=== PATIENT | female | born 1985 | race Caucasian/White ===

== ENCOUNTER 2016-09-03 20:51 | Outpatient (CLI) | payer MEDICAID, OTHER ==
[~2016-09-03] VITALS: Ht 152.4 cm; Wt 61.9 kg
[~2016-09-03 20:51] MED LIST: ACET500C5 PO; NITR-58 PO
[2016-09-03 21:09] VITALS: Ht 152.4 cm; Wt 61.9 kg
[2016-09-03] MEDS ORDERED: PREN1TAB79 PO (21:09)
[2016-09-03] MEDS ORDERED: CEPH-443 PO (21:09)
[2016-09-03 21:10] VITALS: BP 113/59; PULSE 74; RESP 18
--- NOTE | 2016-09-03 23:18 | RADRPT ---
PROCEDURE: ULTRASOUND OBSTETRICAL LIMITED CLINICAL INDICATION: 31-year-old female in labor with ruptured membranes for amni otic fluid index evaluation. TECHNIQUE: Multiple sonographic images of the pelvis were obtained. The images were reviewed on a PACS workstation. COMPARISON: No prior studies are available for comparison. FINDINGS: The cervix is closed with a length of 4.4 cm measured endovaginally. There is a single viable intrau terine gestation. Cardiac activity is present with 132 beats per minute. There is a vertex presenta tion. The placenta is fundal. There is no evidence for an abruption or placenta previa. There is a normal amount of amniotic fluid with an ANTON = 13.6 cm. IMPRESSION: 1. Single viable intrauterine gestation with vertex presentation. 2. The cervix appears closed with a length of 4.4 cm. 3. The amniotic fluid index equals 13.6 cm. .Manny Garner MD, Date Time Electronically viewed and signed by .Manny Garner MD, MD on 09/03/2016 23:18 .M/
--- NOTE | 2016-09-04 02:26 | QN ---
Documentation Comment Laborist Dr Govea's pt 31 y.o. A1 with an IUP at 28 weeks 2 days c/o SROM at 1800. No VB. Denies UC's. PMHx: anemia. PSHx: none. NKDA. BP 113/59 T= 98.4 NST: baseline 130 bpm with accels to 160 bpm. No decels. Occasional UC's. No pooling. Nitrazine negative. US: ANTON 13.6 cm. VTX. Cervix 4.4 cm long. A; IUP at 28 weeks 2 days. Menbranes intact. P: D/C home. WOOD SONI MD Sep 04, 2016 02:26
== END 2016-09-04 00:39 | disposition home or self-care (01) ==
LOC: OBT 20:51 → L-D 20:52 → OBT 09-04 00:39
PROVIDERS: ATTEND Obstetrics & Gynecology
DX: O26.893 Other specified pregnancy related conditions, third trimester (principal); Z3A.28 28 weeks gestation of pregnancy
CPT/HCPCS: 76815; 76817; Z7500; G0463

== ENCOUNTER 2016-09-26 15:13 | Outpatient (CLI) | payer OTHER ==
[~2016-09-26] VITALS: Ht 152.4 cm; Wt 64.7 kg
[~2016-09-26 15:13] MED LIST changes: -ACET500C5 PO; +CEPH-443 PO; -NITR-58 PO; +PREN1TAB79 PO
[2016-09-26 16:23] LABS: ADD UMIC NO; URINE BILIRUBIN (Dip) NEGATIVE (NEGATIVE); URINE BLOOD (Dip) NEGATIVE (NEGATIVE); URINE COLOR LT. YELLOW (YELLOW); URINE GLUCOSE (Dip) NEGATIVE (NEGATIVE); URINE KETONES (Dip) NEGATIVE (NEGATIVE); URINE LEUKOCYTE ESTERASE (Dip) NEGATIVE (NEGATIVE); URINE NITRITE (Dip) NEGATIVE (NEGATIVE); URINE TOTAL PROTEIN (Dip) NEGATIVE (NEGATIVE); URINE UROBILINOGEN (Dip) 0.2 E.U./dL (0.1-1.0)
[2016-09-26 16:28] LABS: BASOPHIL # 0.1 10^3/ul (0.0-0.1); BASOPHILS % 0.6 % (0.0-2.0); EOSINOPHILS # 0.1 10^3/ul (0.0-0.5); EOSINOPHILS % 0.9 % (0.0-7.0); HEMATOCRIT 29.9 % (37.0-47.0); HEMOGLOBIN 9.3 g/dl (12.0-16.0); LYMPHOCYTES # 1.3 10^3/ul (0.8-2.9); LYMPHOCYTES % 12.2 % (15.0-51.0); MEAN CORPUSCULAR HGB CONC 31.2 g/dl (32.0-37.0); MEAN CORPUSCULAR VOLUME 70.6 fl (82.0-101.0); MEAN PLATELET VOLUME 7.6 fl (7.4-10.4); MONOCYTE # 0.7 10^3/ul (0.3-0.9); MONOCYTES % 6.8 % (0.0-11.0); NEUTROPHIL # 8.8 10^3/ul (1.6-7.5); NEUTROPHILS % 79.5 % (39.0-77.0); PLATELET COUNT 280 10^3/UL (140-440); RED BLOOD COUNT 4.24 10^6/ul (4.20-5.40)
[2016-09-26 16:29] LABS: CONDITION 1; LH ANALYZER COMMENTS 1
[2016-09-26] MEDS ORDERED: TERBUTALINE 1 MG/ML INJ SC ONE ×2 (16:30→17:00)
[2016-09-26] MEDS ORDERED: LACTATED RINGER'S 1,000 ML IV ONE (16:30)
[2016-09-26] MEDS ORDERED: LACTATED RINGER'S 1,000 ML IV SCH (16:30)
--- NOTE | 2016-09-26 16:34 | RADRPT ---
PROCEDURE: Limited OB ultrasound. CLINICAL INDICATION: labor TECHNIQUE: Sonographic evaluation to assess cervical length was performed. Transabdominal imaging of the gravid uterus was performed. COMPARISON: 09/03/2016 FINDINGS: Single live intrauterine with cardiac activity is identified. The cervical length e quals 4.3 cm. Cephalic presentation. Heart rate 146 beats per minute. Posterior grade 1 placenta. IMPRESSION: 1. Cervical length equals 4.3 cm. RPTAT: GG .Ramiro Martínez MD, Date Time Electronically viewed and signed by .Ramiro Martínez MD, on 09/26/2016 16:34 .L/
[2016-09-26] MEDS ORDERED: BETAMET NA PHOS/AC(6 MG/ML) 5ML INJ IM SCH (18:30)
[2016-09-26] MEDS ORDERED: NIFEdipine 10 MG CAP PO ONE (18:30)
--- NOTE | 2016-09-26 18:34 | QN ---
Documentation Comment 31 y/o female Ab1 at 32 weeks C/O onset and worsening uterine contractions started yesterday Parental course otherwise uncomplicated. Had 2 births PMH PSH + or previous C/S VS. And general P/E is NL . Patient NOT in labor distress On EFM U/C seen q 3-4 min : After IV hydration and 2 X SQ terbutaline injections uterine contractions subsided Cervix is closed and cervical length is 4.2 cm Will obtain OB U/S Place patient on Nifedipine and magnesium oxide tabs Steroids ordered and will repeat dose next day F/U in [facility] on Monday TOSHIA BRENNAN MD Sep 26, 2016 18:34
--- NOTE | 2016-09-26 18:46 | RADRPT ---
PROCEDURE: US OB. CLINICAL INDICATION: labor and 31 weeks gestational age. TECHNIQUE: Multiple sonographic images of the uterus were obtained. The images were revi ewed on a PACS workstation. COMPARISON: No prior studies are available for comparison. FINDINGS: There is a single live intrauterine gestation. heart rate is 143 beats per minute. Measurements were made in order to determine age. The results are as follows: BPD = 7.57 cm. HC = 28.62 cm. AC = 27.54 cm. FL = 6.09 cm. Estimated weight is 1778 +/- 267 grams. LMP growth percentile is 40 %. Menstrual age by ultrasound dates is 31 weeks 2 days. The estimated date of delivery is 11/26/2016. Position is cephalic and placenta is fundal posterior grade 1. There is no evidence for an abruption or placenta previa. IMPRESSION: 1. Single live intrauterine gestation of 31 weeks 2 days menstrual age by ultrasound dates. 2. The estimated date of delivery is 11/26/2016. RPTAT: QQ .Bipin Chatman MD, MD Date Time Electronically viewed and signed by .Bipin Chatman MD, on 09/26/2016 18:45 .R/
--- NOTE | 2016-09-26 19:17 | RADRPT ---
PROCEDURE: US biophysical profile. CLINICAL INDICATION: Decreased motion. TECHNIQUE: Multiple sonographic images of the uterus were obtained. The images were revi ewed on a PACS workstation. COMPARISON: No prior studies are available for comparison. FINDINGS: There is a single live intrauterine gestation. heart rate is 134 beats per minute. The position is cephalic. The placenta is fundal posterior grade 1 with no abruption or previa. The ANTON is 15.6 cm. (Normal = 5-20 cm.) Breathing Movement: 2 Gross Body Movement: 2 Tone: 2 Qualitative Amniotic Fluid Volume: 2 TOTAL: 8 IMPRESSION: 1. The biophysical score is 8/8. RPTAT: QQ .Bipin Chatman MD, MD Date Time Electronically viewed and signed by .Bipin Chatman MD, on 09/26/2016 19:17 .R/
--- NOTE | 2016-09-27 02:46 | TRIAGE ---
OB Triage Datetime Report Generated by CPN: 09/27/2016 02:45 Datetime: 09/26/2016 19:51 Stage of : OB Triage Assessment Type: Triage Datetime: 09/26/2016 19:26 Stage of : OB Triage Assessment Type: Triage Maternal Assessment Level of Consciousness: Fully Conscious DTR's/Clonus: DTRs 2+; No Clonus Headache: Denies Blurred Vision: No Respiratory Effort: Unlabored; Regular Rhythm; Equal Expansion Breath Sounds, Left: Clear and Equal Breath Sounds, Right: Clear and Equal Nausea/Vomiting: Denies RUQ Epigastric Pain: Denies Lower Extremities Edema: None Degree: None Upper Extremities Edema: None Degree: None Facial Edema: None Fall Risk Assessment History of Falling: (0) No Secondary Diagnosis: (0) No Ambulatory Aid: (0) Bedrest/Nurse Assist IV Therapy: (0) No Gait: (0) Normal/Bedrest/Immobile Mental Status: (0) Oriented to Own Ability Fall Score: 0 Fall Risk Score Definition: No Risk: No action required Labor Evaluation Frequency: None noted Monitor Mode: External Resting Tone [place]: Relaxed Heart Rate FHR Baseline Rate: 130 Monitor Mode: External US Variability: Moderate 6-25 bpm Accelerations: 15X15 Decelerations: None Category: Category I Pain Assessment Pain Scale: 0 Pain Presence: None/Denies Pain Type: N/A Pain Assessment Comments: Pt denies any further pain or cramping Datetime: 09/26/2016 18:14 Labor Evaluation Frequency: OCCAS Monitor Mode: External Duration (sec)2399: 60-70 Quality: Mild Pattern: Normal: <= 5 Contractions in 10 Minutes Resting Tone [place]: Relaxed Heart Rate FHR Baseline Rate: 140 Monitor Mode: External US FHR Baseline Changes: No Baseline Change Variability: Moderate 6-25 bpm Accelerations: 15X15 Decelerations: None Category: Category I Datetime: 09/26/2016 17:20 Labor Evaluation Frequency: IRREGULAR Monitor Mode: External Duration (sec)2399: 60-100 Quality: Moderate Pattern: Normal: <= 5 Contractions in 10 Minutes Resting Tone [place]: Relaxed Heart Rate FHR Baseline Rate: 140 Monitor Mode: External US FHR Baseline Changes: No Baseline Change Variability: Moderate 6-25 bpm Accelerations: 15X15 Decelerations: None Category: Category I Datetime: 09/26/2016 16:44 Vaginal Exam Dilatation (cms): 0.0 Effacement (%): 0 Station: -3 Exam By: A JENNIFERAN Datetime: 09/26/2016 16:15 Labor Evaluation Frequency: 2-4 Monitor Mode: External Duration (sec)2399: 60-130 Quality: Moderate Pattern: Normal: <= 5 Contractions in 10 Minutes Resting Tone [place]: Relaxed Heart Rate FHR Baseline Rate: 130 Monitor Mode: External US FHR Baseline Changes: No Baseline Change Variability: Moderate 6-25 bpm Accelerations: 15X15 Decelerations: None Category: Category I Datetime: 09/26/2016 15:33 Stage of : OB Triage Assessment Type: Triage Maternal Assessment Level of Consciousness: Fully Conscious DTR's/Clonus: DTRs 2+; No Clonus Headache: Denies Blurred Vision: No Respiratory Effort: Unlabored; Regular Rhythm; Equal Expansion Breath Sounds, Left: Clear and Equal Breath Sounds, Right: Clear and Equal Nausea/Vomiting: Denies RUQ Epigastric Pain: Denies Lower Extremities Edema: None Degree: None Upper Extremities Edema: None Degree: None Facial Edema: None Temperature Route: Axillary Fall Risk Assessment History of Falling: (0) No Secondary Diagnosis: (0) No Ambulatory Aid: (0) Bedrest/Nurse Assist IV Therapy: (0) No Gait: (0) Normal/Bedrest/Immobile Mental Status: (0) Oriented to Own Ability Fall Score: 0 Fall Risk Score Definition: No Risk: No action required Labor Evaluation Frequency: 0 Monitor Mode: External Resting Tone [place]: Relaxed Heart Rate FHR Baseline Rate: 130 Monitor Mode: External US Variability: Moderate 6-25 bpm Decelerations: None Category: Category I Pain Assessment Pain Scale: 5 Pain Presence: Intermittent Pain Type: Cramping Pain Location: Abdomen Pain Goal: 3 Pain Relief Measures: Comfort Measures Datetime: 09/26/2016 15:32 Time of Arrival: 09/26/2016 15:13 EGA: 31.3 Arrived By: Ambulatory Arrived From: Home Chief Complaint: C/O UC'S SINCE LAST NIGHT, DENIES BLEEDING OR LEAKING OF FLUID Movement: Decreased Contractions: Irregular Time Contractions Began: 09/26/2016 00:00 Rupture of Membranes: Denies Vaginal Bleeding: None Vaginal Discharge: Denies Recent Sexual Intercouse: Yes Abdominal Trauma: Not Applicable Patient Complaints: Cramping Time Provider Notified: 09/26/2016 16:01 Provider Notified: DR CURRAN Initial Plan: MONITOR, Datetime: 09/04/2016 00:30 Stage of : OB Triage Labor Evaluation Frequency: None noted or palpated Monitor Mode: External Resting Tone [place]: Relaxed Heart Rate FHR Baseline Rate: 125 Monitor Mode: External US FHR Baseline Changes: No Baseline Change Variability: Moderate 6-25 bpm Accelerations: 15X15 Decelerations: None Category: Category I Datetime: 09/04/2016 00:27 Stage of : OB Triage Pain Assessment Pain Scale: 0 Pain Presence: None/Denies Datetime: 09/04/2016 00:00 Labor Evaluation Frequency: NONE Monitor Mode: External Pattern: Normal: <= 5 Contractions in 10 Minutes Resting Tone [place]: Relaxed Heart Rate FHR Baseline Rate: 125 Monitor Mode: External US Variability: Moderate 6-25 bpm Accelerations: 15X15 Decelerations: None Category: Category I Datetime: 09/03/2016 23:00 Labor Evaluation Frequency: X1 Monitor Mode: External Duration (sec)2399: 40 Quality: Mild Pattern: Normal: <= 5 Contractions in 10 Minutes Resting Tone [place]: Relaxed Heart Rate FHR Baseline Rate: 125 Monitor Mode: External US Variability: Moderate 6-25 bpm Accelerations: 15X15 Decelerations: None Category: Category I Datetime: 09/03/2016 22:30 Stage of : OB Triage Pain Assessment Pain Scale: 0 Pain Presence: None/Denies Pain Goal: 0 Datetime: 09/03/2016 22:00 Labor Evaluation Frequency: X2 Monitor Mode: External Duration (sec)2399: 50 Quality: Mild Pattern: Normal: <= 5 Contractions in 10 Minutes Resting Tone [place]: Relaxed Heart Rate FHR Baseline Rate: 130 Monitor Mode: External US Variability: Moderate 6-25 bpm Accelerations: 15X15 Decelerations: None Category: Category I Datetime: 09/03/2016 21:15 Resting Tone [place]: Relaxed Datetime: 09/03/2016 21:06 Pool: Negative Nitrazine: Negative Datetime: 09/03/2016 21:03 EGA: 28.1 Additional Patient Complaints: Datetime: 09/03/2016 21:00 Monitor Mode: External Resting Tone [place]: Relaxed Contraction Comments: Nebo applied Heart Rate FHR Baseline Rate: 135 Monitor Mode: External US Comments: EFM applied Datetime: 09/03/2016 20:56 Stage of : OB Triage Assessment Type: Triage Maternal Assessment Level of Consciousness: Fully Conscious DTR's/Clonus: DTRs 2+; No Clonus Headache: Frontal Blurred Vision: No Respiratory Effort: Unlabored; Regular Rhythm; Equal Expansion Breath Sounds, Left: Clear and Equal Breath Sounds, Right: Clear and Equal Nausea/Vomiting: Hx of Nausea/Vomiting (Annotations: Hx nausea, denies @ this time) RUQ Epigastric Pain: Denies Lower Extremities Edema: None Degree: None Upper Extremities Edema: None Degree: None Facial Edema: None Temperature Route: Oral Fall Risk Assessment History of Falling: (0) No Secondary Diagnosis: (0) No Ambulatory Aid: (0) Bedrest/Nurse Assist IV Therapy: (0) No Gait: (0) Normal/Bedrest/Immobile Mental Status: (0) Oriented to Own Ability Fall Score: 0 Fall Risk Score Definition: No Risk: No action required Pain Assessment Pain Scale: 7 Pain Presence: Intermittent Pain Type: Cramping Pain Location: Abdomen; Back Pain Relief Measures: Comfort Measures Datetime: 09/03/2016 20:55 Time of Arrival: 09/03/2016 20:39 Arrived By: Wheelchair Arrived From: Home Chief Complaint: Leaking clear fluid since 1800 with uc's [id number]. Pt also reports frontal RUCKER pain. Movement: Present Contractions: Irregular Time Contractions Began: 09/03/2016 18:00 Contractions: [id number] Rupture of Membranes: Unsure Vaginal Bleeding: None Vaginal Discharge: Present Recent Sexual Intercouse: Yes Abdominal Trauma: Not Applicable Patient Complaints: Contractions; Cramping; Back Pain; Headache Time Provider Notified: 09/03/2016 21:38 Provider Notified: ZACHARIAH Initial Plan: KUSH GREER, [place]
[2016-09-27] MEDS ORDERED: PRO20 PO (18:31)
== END 2016-09-26 20:00 | disposition home or self-care (01) ==
LOC: OBT 15:13 → L-D 15:14 → OBT 20:00
PROVIDERS: ATTEND Obstetrics & Gynecology
DX: O62.9 Abnormality of forces of labor, unspecified (principal); Z3A.32 32 weeks gestation of pregnancy
CPT/HCPCS: 36415; 76815; 76817; 76818; 81003; 85025; 96360; 96361; 96372; J0702; J3105; J7120; Z7500; Z7610; G0463

== ENCOUNTER 2016-09-27 18:21 | Outpatient (CLI) | payer OTHER ==
[~2016-09-27] VITALS: Ht 152.4 cm; Wt 64.9 kg
[~2016-09-27 18:21] MED LIST changes: -CEPH-443 PO
[2016-09-27 18:31] VITALS: Ht 152.4 cm; Wt 64.9 kg
[2016-09-27] MEDS ORDERED: PRO20 PO (18:31)
[2016-09-27 18:32] VITALS: BP 106/59; PULSE 96; RESP 18
[2016-09-27] MEDS ORDERED: BETAMET NA PHOS/AC(6 MG/ML) 5ML INJ IM ONE (19:00)
--- NOTE | 2016-09-27 20:08 | TRIAGE ---
OB Triage Datetime Report Generated by CPN: 09/27/2016 20:08 Datetime: 09/27/2016 19:29 Stage of : OB Triage Frequency: 0 Monitor Mode: External Pattern: Normal: <= 5 Contractions in 10 Minutes Resting Tone [place]: Relaxed FHR Baseline Rate: 135 Monitor Mode: External US FHR Baseline Changes: No Baseline Change Variability: Moderate 6-25 bpm Accelerations: 15X15 Decelerations: None Category: Category I Comments: removed Pain Scale: 0 Pain Presence: None/Denies Pain Type: N/A Datetime: 09/27/2016 18:38 Frequency: 0 Pattern: Normal: <= 5 Contractions in 10 Minutes Resting Tone [place]: Relaxed Contraction Comments: NONE NOTED FHR Baseline Rate: 140 Monitor Mode: External US Variability: Moderate 6-25 bpm Accelerations: 15X15 Decelerations: None Category: Category I Datetime: 09/27/2016 18:37 Assessment Type: Admission Assessment Level of Consciousness: Fully Conscious DTR's/Clonus: DTRs 2+; No Clonus Headache: Denies Blurred Vision: No Respiratory Effort: Unlabored; Regular Rhythm; Equal Expansion Breath Sounds, Left: Clear and Equal Breath Sounds, Right: Clear and Equal Nausea/Vomiting: Denies RUQ Epigastric Pain: Denies Lower Extremities Edema: None Degree: None Upper Extremities Edema: None Degree: None Facial Edema: None History of Falling: (0) No Secondary Diagnosis: (0) No Ambulatory Aid: (0) Bedrest/Nurse Assist IV Therapy: (0) No Gait: (0) Normal/Bedrest/Immobile Mental Status: (0) Oriented to Own Ability Fall Score: 0 Fall Risk Score Definition: No Risk: No action required Datetime: 09/27/2016 18:36 Time of Arrival: 09/27/2016 18:15 EGA: 31.4 Arrived By: Ambulatory Arrived From: Home Movement: Present Contractions: Denies/Absent Rupture of Membranes: Denies Vaginal Bleeding: None Vaginal Discharge: Denies Recent Sexual Intercouse: Denies Abdominal Trauma: Not Applicable Patient Complaints: Other Time Provider Notified: 09/27/2016 19:30 Provider Notified: Dr Govea Initial Plan: AMINAHT
--- NOTE | 2016-09-27 20:34 | HP ---
Date/Time of Note Date/Time of Note DATE: 09/27/16 TIME: 20:30 OB - History Hx of Present Free Text/Dictation L&D Triage 31yo at 31+4 w/recent UCs s/p 1st BMZ injection yesterday, here today for 2nd injection in the setting of prior PTD at 35wks GA. Pt doing well. Denies UCs, VB or LOF. Reports good FM. Estimated Due Date: Nov 25, 2016 : 4 Para: 2 Care: Good Care Past Family/Social History * Past Medical, Surgical, Family and Obstetric Histories reviewed from chart. OB Admission Exam Vital Signs Vital Signs Vital Signs Date Time Temp Pulse Resp B/P Pulse Ox O2 Delivery O2 Flow Rate FiO2 09/27/16 18:32 98.3 96 18 106/59 Room Air Physical Exam Heart Rate: 130's Decelerations: No Decelerations Varibility: Moderate Contractions on Admission: None OB Assessment/Plan Other Assessment: Hx of Contractions without signs/sxs of Labor Other plan: Per primary OB, Dr. Govea, pt received 2nd dose of corticosteroids FWB reassuring w/reactive NST Pt to f/up tomorrow in clinic as scheduled PTL, PPROM and FKC precautions reviewed Questions answered to patient's satisfaction RUTH AVERY MD Sep 27, 2016 20:33
== END 2016-09-27 19:53 | disposition home or self-care (01) ==
LOC: OBT 18:21 → L-D 18:22 → OBT 19:53
PROVIDERS: ATTEND Obstetrics & Gynecology
DX: O60.03 Preterm labor without delivery, third trimester (principal); Z3A.35 35 weeks gestation of pregnancy
CPT/HCPCS: G0463

== ENCOUNTER 2016-10-12 17:13 | Outpatient (CLI) | payer OTHER ==
[~2016-10-12] VITALS: Ht 152.4 cm; Wt 64.7 kg
[~2016-10-12 17:13] MED LIST changes: +PRO20 PO
[2016-10-12 18:19] VITALS: Ht 152.4 cm; Wt 64.7 kg
[2016-10-12 18:20] VITALS: BP_SYST 111
[2016-10-12 18:22] VITALS: BP 111/69; PULSE 104; RESP 18
[2016-10-12] MEDS ORDERED: TERBUTALINE 1 ML ONE (18:52)
[2016-10-12] MEDS ORDERED: TERBUTALINE 1 MG/ML INJ SC ONE (19:00)
[2016-10-12] MEDS ORDERED: MAGNESIUM SULFATE 20 GM/500 ML 500 ML IV SCH (19:29)
[2016-10-12] MEDS ORDERED: LACTATED RINGER'S 1,000 ML IV SCH (19:29)
[2016-10-12] MEDS ORDERED: ACETAMINOPHEN 325 MG TAB PO PRN (19:30)
[2016-10-12] MEDS ORDERED: BETAMET NA PHOS/AC(6 MG/ML) 5ML INJ IM SCH (19:30)
[2016-10-12] MEDS ORDERED: MAGNESIUM SULFATE 4 GM/100 ML 100 ML IV ONE (19:30)
[2016-10-12 19:46] LABS: ADD UMIC NO; URINE BILIRUBIN (Dip) NEGATIVE (NEGATIVE); URINE BLOOD (Dip) NEGATIVE (NEGATIVE); URINE COLOR LT. YELLOW (YELLOW); URINE GLUCOSE (Dip) NEGATIVE (NEGATIVE); URINE KETONES (Dip) TRACE (NEGATIVE); URINE LEUKOCYTE ESTERASE (Dip) NEGATIVE (NEGATIVE); URINE NITRITE (Dip) NEGATIVE (NEGATIVE); URINE TOTAL PROTEIN (Dip) NEGATIVE (NEGATIVE); URINE UROBILINOGEN (Dip) 0.2 E.U./dL (0.1-1.0)
[2016-10-12 19:59] LABS: ADD SCAN DIFF NO
[2016-10-12] MEDS ORDERED: AMPICILLIN 2 GM/NS (PMX) 100 ML IV ONE (20:00)
[2016-10-12 20:12] LABS: INR 1.05; PARTIAL THROMBOPLASTIN TIME 25.9 Sec (25.0-35.0); PROTIME 13.7 Sec (12.2-14.2); PT RATIO 1.1
[2016-10-12 20:14] LABS: BASOPHILS % 0.3 % (0.0-2.0); EOSINOPHILS # 0.1 10^3/ul (0.0-0.5); EOSINOPHILS % 0.7 % (0.0-7.0); HEMATOCRIT 31.6 % (37.0-47.0); HEMOGLOBIN 9.2 g/dl (12.0-16.0); LYMPHOCYTES # 1.8 10^3/ul (0.8-2.9); LYMPHOCYTES % 16.3 % (15.0-51.0); MEAN CORPUSCULAR HEMOGLOBIN 21.4 pg (29.0-33.0); MEAN CORPUSCULAR HGB CONC 29.1 g/dl (32.0-37.0); MEAN CORPUSCULAR VOLUME 73.5 fl (82.0-101.0); MEAN PLATELET VOLUME 9.3 fl (7.4-10.4); MONOCYTE # 0.8 10^3/ul (0.3-0.9); MONOCYTES % 7.7 % (0.0-11.0); NEUTROPHIL # 8.1 10^3/ul (1.6-7.5); NEUTROPHILS % 73.5 % (39.0-77.0); PLATELET COUNT 239 10^3/UL (140-415); RED CELL DISTRIBUTION WIDTH 18.8 % (11.5-14.5)
--- NOTE | 2016-10-12 22:21 | QN ---
Documentation Comment 31-year-old with IUP at 33 weeks and 5 days with history of section 2 here today with complaint of contractions. She was admitted about 2 weeks ago due to contractions and was a started on Procardia. Status post 2 doses of steroid and was discharged home with 10 mg Procardia 4 times daily Patient currently taking her Procardia as a scheduled. She denies any urinary symptoms. She denies any leaking of fluid, vaginal bleeding or decreased movement Physical examination: GA: A&O, in moderate distress Abdomen: Soft, nontender. Fundal height consistent with gestational age contractions every 2-3 minutes with interval irritability noted on the monitor NST: Category 1 Vaginal examination: Cervix posterior closed and long Assessment: 1-history of section 2 IUP at 33 weeks and 5 days2. 3 history of contractions 2 weeks ago status post betamethasone-and currently on Procardia oral. 4-regular uncomfortable contractions with irritability. Due to the discomfort and contractions, a single dose of terbutaline was given UA negative Plan: Admit to antepartum Start magnesium for tocolysis Consider rescue steroid Antibiotics for GBS prophylaxis Plan discussed with the patient. I was called later by RN, that the patient refused magnesium. She felt no pain after she received IV hydration and a dose of terbutaline. Declined to be admitted in the hospital and declined to receive tocolysis, although explained to her about the risk of uterine rupture with contraction in the context of prior to section. She is signed AMA and desire to leave the hospital AGAINST MEDICAL ADVICE. She verbalized understanding all above risks. COMFORT HWANG MD Oct 12, 2016 22:21
[2016-10-13] MEDS ORDERED: AMPICILLIN 1 GM/NS (PMX) 50 ML IV SCH
[2016-10-13] MEDS ORDERED: MULTIVIT/MIN/FOLATE/IRON/PREN TAB PO SCH (09:00)
== END 2016-10-12 21:31 | disposition left against medical advice (07) ==
LOC: L-D 17:13 → OBT 17:13
PROVIDERS: ATTEND Obstetrics & Gynecology Obstetrics
DX: O60.03 Preterm labor without delivery, third trimester (principal); Z3A.33 33 weeks gestation of pregnancy; Z53.29 Procedure and treatment not carried out because of patient's decision for other reasons
CPT/HCPCS: 36415; 81003; 85025; 85610; 85730; 86592; 86850; 86900; 86901; 96360; 96361; J3105; J7120; Z7500; G0463

== ENCOUNTER 2016-11-12 17:10 | Inpatient (IN) | payer OTHER ==
[~2016-11-12] VITALS: Ht 152.4 cm; Wt 66.6 kg
[2016-11-12 17:16] VITALS: Ht 152.4 cm; Wt 66.6 kg
[2016-11-12 17:25] VITALS: BP 108/61; PULSE 83; RESP 20
[2016-11-12] MEDS: LACTATED RINGER'S 1,000 ML IV SCH ×2 (18:08→19:37)
--- NOTE | 2016-11-12 19:32 | TRIAGE ---
OB Triage Datetime Report Generated by CPN: 11/12/2016 19:32 Datetime: 11/12/2016 18:00 Labor Evaluation Frequency: 4-5 Monitor Mode: External Duration (sec)2399: 60 Quality: Moderate Pattern: Normal: <= 5 Contractions in 10 Minutes Resting Tone [place]: Relaxed Heart Rate FHR Baseline Rate: 120 Monitor Mode: External US FHR Baseline Changes: No Baseline Change Variability: Moderate 6-25 bpm Accelerations: 15X15 Decelerations: None Category: Category I Pain Assessment Pain Scale: 7 Pain Presence: Intermittent Pain Type: Contraction Pain Location: Abdomen Pain Goal: 4 Datetime: 11/12/2016 17:29 Maternal Assessment Level of Consciousness: Fully Conscious DTR's/Clonus: DTRs 2+; No Clonus Headache: Denies Blurred Vision: No Respiratory Effort: Unlabored; Regular Rhythm; Equal Expansion Breath Sounds, Left: Clear and Equal Breath Sounds, Right: Clear and Equal Nausea/Vomiting: Denies RUQ Epigastric Pain: Denies Facial Edema: None Temperature Route: Axillary Fall Risk Assessment History of Falling: (0) No Secondary Diagnosis: (0) No Ambulatory Aid: (0) Bedrest/Nurse Assist IV Therapy: (0) No Gait: (0) Normal/Bedrest/Immobile Mental Status: (0) Oriented to Own Ability Fall Score: 0 Fall Risk Score Definition: No Risk: No action required Datetime: 11/12/2016 17:21 Maternal Assessment Level of Consciousness: Fully Conscious DTR's/Clonus: DTRs 2+ Headache: Denies Blurred Vision: No Nausea/Vomiting: Denies RUQ Epigastric Pain: Denies Facial Edema: None Labor Evaluation Frequency: Q 5 AT HOME Monitor Mode: External Quality: Moderate Pattern: Normal: <= 5 Contractions in 10 Minutes Resting Tone [place]: Relaxed Heart Rate FHR Baseline Rate: 115 Monitor Mode: External US FHR Baseline Changes: No Baseline Change Variability: Moderate 6-25 bpm Accelerations: 15X15 Decelerations: None Category: Category I Pain Assessment Pain Scale: 8 Pain Presence: Intermittent Pain Type: Contraction Pain Location: Abdomen Pain Goal: 4 Membrane Status: Intact Datetime: 10/12/2016 21:31 Time of Arrival: 11/12/2016 17:10 EGA: 38.1 Arrived By: Wheelchair Arrived From: Home Chief Complaint: UCS SINCE 1400 Movement: Present Contractions: Regular Time Contractions Began: 11/12/2016 14:00 Contractions: Q 5 AT HOME Rupture of Membranes: Denies Vaginal Bleeding: None Vaginal Discharge: Denies Recent Sexual Intercouse: Denies Abdominal Trauma: Not Applicable Patient Complaints: Contractions Time Provider Notified: 11/12/2016 17:50 Provider Notified: BINA Initial Plan: EFM,CALL DR BINA Datetime: 10/12/2016 21:25 Stage of : OB Triage Datetime: 10/12/2016 21:03 Stage of : OB Triage Labor Evaluation Frequency: IRREGULAR Monitor Mode: External Duration (sec)2399: 40-80 Quality: Mild Resting Tone [place]: Relaxed Heart Rate FHR Baseline Rate: 130 Variability: Moderate 6-25 bpm Accelerations: 15X15 Decelerations: None Category: Category I Pain Presence: None/Denies Pain Type: N/A Datetime: 10/12/2016 20:23 Stage of : Antepartum Datetime: 10/12/2016 20:00 Stage of : OB Triage Labor Evaluation Frequency: irregular Monitor Mode: External Duration (sec)2399: 40-90 Quality: Mild Resting Tone [place]: Relaxed Heart Rate FHR Baseline Rate: 130 Monitor Mode: External US Variability: Moderate 6-25 bpm Accelerations: 15X15 Decelerations: None Category: Category I Datetime: 10/12/2016 19:39 Stage of : OB Triage Datetime: 10/12/2016 19:23 Stage of : OB Triage Pain Assessment Pain Scale: 0 Pain Presence: None/Denies Pain Type: N/A Pain Goal: 0 Datetime: 10/12/2016 18:50 Labor Evaluation Frequency: X1 Monitor Mode: External Duration (sec)2399: 40-50 Quality: Mild Pattern: Normal: <= 5 Contractions in 10 Minutes Resting Tone [place]: Relaxed Heart Rate FHR Baseline Rate: 135 Monitor Mode: External US FHR Baseline Changes: No Baseline Change Variability: Moderate 6-25 bpm Accelerations: 15X15 Decelerations: None Category: Category I Pain Assessment Pain Scale: 0 Pain Presence: None/Denies Pain Type: N/A Pain Goal: 0 Membrane Status: Intact Datetime: 10/12/2016 18:34 Vaginal Exam Dilatation (cms): 0.0 Effacement (%): 30 Station: -3 Exam By: DR HWANG Vaginal Bleeding: None Cervix, Consistency: Firm Cervix, Position: Posterior Presentation 'A': Unable to Assess Lie 'A': Unable to Assess Datetime: 10/12/2016 18:13 Headache: Denies Labor Evaluation Frequency: 3-5 Monitor Mode: External Duration (sec)2399: 40-50 Quality: Mild Pattern: Normal: <= 5 Contractions in 10 Minutes Resting Tone [place]: Relaxed Heart Rate FHR Baseline Rate: 135 Monitor Mode: External US FHR Baseline Changes: No Baseline Change Variability: Moderate 6-25 bpm Accelerations: 15X15 Decelerations: None Category: Category I Pain Assessment Pain Scale: 5 Pain Presence: Intermittent Pain Type: Contraction Pain Location: Abdomen Pain Goal: 0 Pain Relief Measures: Comfort Measures Membrane Status: Intact Datetime: 10/12/2016 17:54 Maternal Assessment Level of Consciousness: Fully Conscious DTR's/Clonus: DTRs 2+; No Clonus Headache: Denies Blurred Vision: No Respiratory Effort: Unlabored Breath Sounds, Left: Clear and Equal Breath Sounds, Right: Clear and Equal Nausea/Vomiting: Denies RUQ Epigastric Pain: Denies Facial Edema: None Labor Evaluation Frequency: 1-2 Monitor Mode: External Duration (sec)2399: 30-40 Quality: Mild Pattern: Normal: <= 5 Contractions in 10 Minutes Resting Tone [place]: Relaxed Heart Rate FHR Baseline Rate: 125 Monitor Mode: External US FHR Baseline Changes: No Baseline Change Variability: Moderate 6-25 bpm Accelerations: 15X15 Decelerations: None Category: Category I Pain Assessment Pain Scale: 5 Pain Presence: Intermittent Pain Type: Cramping Pain Location: Abdomen Pain Goal: 0 Pain Relief Measures: Comfort Measures Membrane Status: Intact Datetime: 10/12/2016 17:50 Time of Arrival: 10/12/2016 17:12 EGA: 33.5 Arrived By: Ambulatory Arrived From: Home Chief Complaint: R/O PTL Movement: Present Contractions: Denies/Absent Time Contractions Began: 10/12/2016 10:00 Contractions: 10 MIN Rupture of Membranes: Denies Vaginal Bleeding: None Vaginal Discharge: Denies Recent Sexual Intercouse: Denies Abdominal Trauma: Not Applicable Patient Complaints: Cramping Additional Patient Complaints: PT STATES HAVING PAIN IN HER LOWER BACK SINCE 1100 THIS MORNING. P T IS TAKING PROCARDIA 10MG EVERY 6 HRS.HX OF PTL AND HX PTD. PT ADMITED TO 2NE Time Provider Notified: 10/12/2016 17:51 Provider Notified: ARDALAN Datetime: 10/12/2016 15:23 Labor Evaluation Frequency: 0 Monitor Mode: External Duration (sec)2399: 0 Resting Tone [place]: Relaxed Contraction Comments: 0 Heart Rate FHR Baseline Rate: 125 Monitor Mode: External US FHR Baseline Changes: No Baseline Change Variability: Moderate 6-25 bpm Accelerations: 15X15 Decelerations: None Category: Category I Datetime: 09/27/2016 18:37 Fall Score: 0 Fall Risk Score Definition: No Risk: No action required Datetime: 09/27/2016 18:36 EGA: 31.4 Datetime: 09/26/2016 19:26 Fall Score: 0 Fall Risk Score Definition: No Risk: No action required Datetime: 09/26/2016 17:21 Stage of : OB Triage Pain Assessment Pain Scale: 0 Pain Presence: None/Denies Pain Type: N/A Pain Goal: 0 Pain Relief Measures: Comfort Measures Datetime: 09/26/2016 15:33 Fall Score: 0 Fall Risk Score Definition: No Risk: No action required Datetime: 09/26/2016 15:32 EGA: 31.3 Datetime: 09/03/2016 21:03 EGA: 28.1 Datetime: 09/03/2016 20:56 Fall Score: 0 Fall Risk Score Definition: No Risk: No action required
[2016-11-12] MEDS ORDERED: CEFAZOLIN 2 GM/50 ML (PMX) 50 ML IV SCH (20:00)
[2016-11-12] MEDS ORDERED: METHYLERGONOVINE 0.2 MG INJ IM PRN (20:00)
[2016-11-12] MEDS ORDERED: OXYTOCIN 30 UNITS/LR 500 ML IV PRN (20:00)
[2016-11-12] MEDS ORDERED: OXYTOCIN 30 UNITS/LR 500 ML IV SCH (20:00)
[2016-11-12] MEDS ORDERED: MISOPROSTOL 200 MCG TAB PR PRN (20:00)
[2016-11-12] MEDS ORDERED: CARBOPROST 250 MCG INJ IM PRN (20:00)
[2016-11-12 20:02] LABS: ADD SCAN DIFF NO
[2016-11-12 20:05] LABS: ABNORMAL IP MESSAGE 1; BASOPHILS % 0.3 % (0.0-2.0); EOSINOPHILS # 0.1 10^3/ul (0.0-0.5); EOSINOPHILS % 0.5 % (0.0-7.0); HEMATOCRIT 35.2 % (37.0-47.0); HEMOGLOBIN 10.1 g/dl (12.0-16.0); LYMPHOCYTES # 1.2 10^3/ul (0.8-2.9); LYMPHOCYTES % 10.2 % (15.0-51.0); MEAN CORPUSCULAR HEMOGLOBIN 21.7 pg (29.0-33.0); MEAN CORPUSCULAR HGB CONC 28.7 g/dl (32.0-37.0); MEAN CORPUSCULAR VOLUME 75.7 fl (82.0-101.0); MEAN PLATELET VOLUME 10.1 fl (7.4-10.4); MONOCYTE # 0.9 10^3/ul (0.3-0.9); MONOCYTES % 7.4 % (0.0-11.0); NEUTROPHIL # 9.7 10^3/ul (1.6-7.5); NEUTROPHILS % 80.2 % (39.0-77.0); PLATELET COUNT 271 10^3/UL (140-415); RED BLOOD COUNT 4.65 10^6/ul (4.20-5.40); RED CELL DISTRIBUTION WIDTH 20.9 % (11.5-14.5); WHITE BLOOD COUNT 12.2 10^3/ul (4.8-10.8)
[2016-11-12 20:14] LABS: INR 1.05; PROTIME 13.7 Sec (12.2-14.2); PT RATIO 1.1
[2016-11-12 20:15] LABS: PARTIAL THROMBOPLASTIN TIME 27.5 Sec (25.0-35.0)
[2016-11-12] MEDS ORDERED: morphine SULFATE/PF (10 MG/10 ML) INJ ONE (20:17)
[2016-11-12] MEDS ORDERED: OXYTOCIN 10 UNIT INJ ONE (20:17)
[2016-11-12] MEDS ORDERED: PHENYLephrine (100 MCG/ML) 5ML SYG ONE (20:17)
[2016-11-12] MEDS ORDERED: ONDANSETRON 4 MG INJ ONE (20:17)
--- NOTE | 2016-11-12 21:13 | HP ---
Date/Time of Note Date/Time of Note DATE: 11/12/16 TIME: 21:10 OB - History Hx of Present Free Text/Dictation admitted in labor at 38 + weeks with 2 X previous C/S Chief Complaint: labor pains Estimated Due Date: Nov 25, 2016 : 4 Para: 2 Spontaneous : 1 Care: Good Care Ultrasounds: Normal mid trimester US Obstetrical Complications: None Medical Complications: Other (prtevious C/S X 2 ) Past Family/Social History * Past Medical, Surgical, Family and Obstetric Histories reviewed from chart. Blood Type: O+ Rubella: immune RPR/VDRL: Negative GBS Status: Unknown HBsAG: Negative OB Admission Exam Vital Signs Vital Signs Vital Signs Date Time Temp Pulse Resp B/P Pulse Ox O2 Delivery O2 Flow Rate FiO2 11/12/16 17:25 97.8 83 20 108/61 Room Air Physical Exam HEENT: WNL Heart: Rhythm Normal Lungs: Clear, Equal Abdomen: WNL Extremities: Normal Reflexes: Normal Cervical Dilatation: None Effacement: 0% Station: -3 Membranes: Intact Heart Rate: 140's Accelerations: Accelerations Present Decelerations: No Decelerations Varibility: Moderate Contractions on Admission: < 5 Minutes Apart Date/Time Contractions Began: 11/12/2016 1430 Frequency of Contractions: q 5 Duration: >60 seconds Intensity: Moderate Last 72 hours Lab Results CBC & BMP 11/12/16 19:44 OB Assessment/Plan Other Assessment: term gestation labor pains previous C/S X 2 Other plan: repeat C/S TOSHIA BRENNAN MD Nov 12, 2016 21:13
--- NOTE | 2016-11-12 21:15 | OPR ---
Operative Report Planned Procedure Procedure date Nov 12, 2016 Procedure(s) repeat C/S Performed by: TOSHIA BRENNAN MD Assisting provider: KALI CHIN MD Anesthesiologist: SANDRA LAZAR MD Pre-procedure diagnosis term gestation previous C/S X 2 labor pains Anesthesia Type: spinal Procedure Description Under satisfactory anaesthesia a Pfannenstiel incision was made two fingerbreadth above and parallel to the symphysis of pubis around the previous scar and previous scar was removed Incision was extended laterally to the border of the Recti muscles on either sides. Incision was carried down with sharp and blunt dissection until fascia was reached. Anterior Recti muscle fascia was incised in mid portion and incision extended laterally to the border of skin incision. Fascia was mobilized from muscle superiorly and Recti muscles were from midline using sharp and blunt dissection. Peritoneum was visualized; Avoiding bowel and bladder it was incised . Incision was extended superiorly and inferiorly. Bladder blade was placed. Posterior peritoneum covering the lower segment of the uterus and lower segment of the uterus were incised.Low transverse uterine incision was made on lower segment of the uterus. Incision extended laterally to the border of Round Lig. on either sides and baby was delivered from OT. position . Amniotic fluid appeared clear. Cord blood was obtained and cord had 3 vessels . Placenta was delivered spontaneously and appeared intact and complete. Intrauterine cavity was rubbed with a laparotomy sponge. Uterine incision was closed in 2 layers using running stitches of No1 Monocryl. Hemostasis appeared secure. Ovaries and Fallopian tubes were within normal limits. Announcing needle, lap sponge and instrument count to be correct abdomen was closed in layers as follows: Peritoneum and Recti muscles with running stitches of 20 Vicryl. Fascia with running stitch of No 1 PDS. Subcutaneous tissue with running stitches of 20 Chromic and skin was closed using veronica. Patient tolerated the procedure well and was transferred to [facility] in good condition. Post-Procedure Post-procedure diagnosis S/P C/S Findings: Live Baby Specimen removed: No Complications: None Pt Condition post procedure: stable Disposition: PACU Physician Certification I, the undersigned physician, hereby certify that I have discussed the procedure described in this consent form with this patient (or the patient's legal outside sales representative), including: * The risk and benefits of the procedure; * Any adverse reactions that may reasonably be expected to occur; * Any alternative efficacious methods of treatment which may be medically viable ; * The potential problems that may occur during recuperation; * Potential for blood transfusion and associated risks/benefits; and * Any research or economic interest I may have regarding this treatment. I further certify that the patient/legally responsible person was encouraged to ask question and that all questions were answered. TOSHIA BRENNAN MD Nov 12, 2016 21:15
[2016-11-12] MEDS: KETOROLAC 30 MG INJ IV PRN (23:30)
[2016-11-12] MEDS ORDERED: NALOXONE (0.4 MG/ML) INJ IV PRN (23:30)
[2016-11-12] MEDS ORDERED: DIPHENHYDRAMINE 50 MG INJ IV PRN (23:30)
[2016-11-12] MEDS ORDERED: ONDANSETRON 4 MG INJ IV PRN (23:30)
[2016-11-12] MEDS ORDERED: morphine 2 MG INJ IV PRN (23:30)
[2016-11-13] VITALS (7 sets, daily range): BP systolic 99–108; BP diastolic 51–61; PULSE 71–80; RESP 18–19
[2016-11-13] MEDS ORDERED: LANOLIN 7 GM TUBE TOP PRN (01:30)
[2016-11-13] MEDS ORDERED: OXYTOCIN 30 UNITS/LR 500 ML IV PRN (01:30)
[2016-11-13] MEDS ORDERED: METHYLERGONOVINE 0.2 MG INJ IM PRN (01:30)
[2016-11-13] MEDS ORDERED: NA PHOSPHATE/BIPHOS 133 ML ENEMA PR PRN ×2 (01:30)
[2016-11-13] MEDS ORDERED: CARBOPROST 250 MCG INJ IM PRN (01:30)
[2016-11-13] MEDS ORDERED: MISOPROSTOL 200 MCG TAB PR PRN (01:30)
[2016-11-13] MEDS ORDERED: ACETAMINOPHEN/CODEINE #3 TAB PO PRN (01:30)
[2016-11-13] MEDS: LACTATED RINGER'S 1,000 ML IV SCH ×4 (01:39→23:54)
[2016-11-13] MEDS: CEFAZOLIN 2 GM/50 ML (PMX) 50 ML IV SCH ×3 (05:12→22:00)
[2016-11-13] MEDS: CLINDAMYCIN 300 MG CAP PO SCH ×4 (05:42→23:53)
[2016-11-13] MEDS: IBUPROFEN 800 MG TAB PO SCH ×3 (06:00→22:00)
[2016-11-13 07:19] LABS: ADD SCAN DIFF NO
[2016-11-13 07:23] LABS: ABNORMAL IP MESSAGE 1; BASOPHILS % 0.3 % (0.0-2.0); EOSINOPHILS # 0.1 10^3/ul (0.0-0.5); EOSINOPHILS % 0.4 % (0.0-7.0); HEMATOCRIT 30.8 % (37.0-47.0); HEMOGLOBIN 8.9 g/dl (12.0-16.0); LYMPHOCYTES % 7.5 % (15.0-51.0); MEAN CORPUSCULAR HEMOGLOBIN 21.8 pg (29.0-33.0); MEAN CORPUSCULAR HGB CONC 28.9 g/dl (32.0-37.0); MEAN CORPUSCULAR VOLUME 75.3 fl (82.0-101.0); MEAN PLATELET VOLUME 9.7 fl (7.4-10.4); MONOCYTE # 0.8 10^3/ul (0.3-0.9); MONOCYTES % 6.2 % (0.0-11.0); NEUTROPHIL # 11.4 10^3/ul (1.6-7.5); NEUTROPHILS % 84.6 % (39.0-77.0); PLATELET COUNT 225 10^3/UL (140-415); RED BLOOD COUNT 4.09 10^6/ul (4.20-5.40); RED CELL DISTRIBUTION WIDTH 20.9 % (11.5-14.5); WHITE BLOOD COUNT 13.4 10^3/ul (4.8-10.8)
[2016-11-13] MEDS: SENNA/DOCUSATE NA (8.6MG/50MG) TAB PO SCH ×2 (08:09→21:54)
[2016-11-13] MEDS: KETOROLAC 30 MG INJ IV PRN ×3 (08:09→20:26)
[2016-11-13] MEDS ORDERED: BISACODYL 10 MG SUPP PR ONE (10:00)
--- NOTE | 2016-11-13 16:36 | PN ---
Date/Time of Note Date/Time of Note DATE: 11/13/16 TIME: 16:34 Assessment/Plan VTE Prophylaxis VTE Prophylaxis Intervention: ambulation Assessment/Plan Assessment/Plan POD # 1 S/P C/S will advance diet and ambulate Subjective 24 Hr Interval Summary NO BM Passing flatus Constitutional: BM, ambulates, flatus, improved, no complaints, urine output Pain Control: well controlled Exam/Review of Systems Vital Signs Vitals Vital Signs Date Time Temp Pulse Resp B/P Pulse Ox O2 Delivery O2 Flow Rate FiO2 11/13/16 11:45 98.0 75 18 99/52 Room Air 11/13/16 05:33 96 21 Intake and Output 11/12/16 11/12/16 11/13/16 15:00 23:00 07:00 Intake Total 2500 ml 1175 ml Output Total 1100 ml 800 ml Balance 1400 ml 375 ml Exam Free Text/Dictation abdomen: soft BS + Incision : covered Constitutional: alert, oriented, well developed Psych: nl mood/affect, no complaints Head: atraumatic, normocephalic Eyes: EOMI, nl conjunctiva, nl lids, nl sclera ENMT: mucosa pink and moist, nl external ears & nose, nl lips & teeth, nl nasal mucosa & septum Neck: non-tender, supple Respiratory: clear to auscultation, normal air movement Cardiovascular: nl pulses, regular rate and rhythm Gastrointestinal: nl liver, spleen, non-tender, soft Musculoskeletal: nl extremities to inspection, nl gait and stance Extremities: normal pulses Neurological: ATTENDING AMBULATORY CARE II-XII intact, nl mental status, nl speech, nl strength Skin: nl turgor, rash or lesions Lymph: nl lymph nodes Results Result Diagram: 11/13/16 0706 TOSHIA BRENNAN MD Nov 13, 2016 16:35
[2016-11-13] MEDS ORDERED: IBUPROFEN 800 MG TAB PO SCH (22:00)
[2016-11-13] MEDS ORDERED: CEFAZOLIN 2 GM/50 ML (PMX) 50 ML IVPB SCH (22:00)
[2016-11-13] MEDS ORDERED: BISACODYL 10 MG SUPP PR SCH (23:45)
[2016-11-14] MEDS: OXYCODONE/ACETAMINOPHEN (5/325) TAB PO PRN ×4 (00:20→18:19)
[2016-11-14 04:29] VITALS: BP 101/57; PULSE 77; RESP 19
[2016-11-14] MEDS: IBUPROFEN 800 MG TAB PO SCH ×3 (05:53→21:49)
[2016-11-14] MEDS: CLINDAMYCIN 300 MG CAP PO SCH ×3 (05:53→18:16)
[2016-11-14 08:06] LABS: ADD SCAN DIFF NO
[2016-11-14 08:20] LABS: ABNORMAL IP MESSAGE 1; BASOPHIL # 0.1 10^3/ul (0.0-0.1); BASOPHILS % 0.5 % (0.0-2.0); EOSINOPHILS # 0.3 10^3/ul (0.0-0.5); EOSINOPHILS % 2.3 % (0.0-7.0); HEMATOCRIT 31.9 % (37.0-47.0); LYMPHOCYTES # 1.5 10^3/ul (0.8-2.9); LYMPHOCYTES % 13.1 % (15.0-51.0); MEAN CORPUSCULAR HEMOGLOBIN 21.5 pg (29.0-33.0); MEAN CORPUSCULAR HGB CONC 28.2 g/dl (32.0-37.0); MEAN CORPUSCULAR VOLUME 76.1 fl (82.0-101.0); MEAN PLATELET VOLUME 9.7 fl (7.4-10.4); MONOCYTE # 0.9 10^3/ul (0.3-0.9); MONOCYTES % 7.7 % (0.0-11.0); NEUTROPHIL # 8.6 10^3/ul (1.6-7.5); NEUTROPHILS % 75.4 % (39.0-77.0); PLATELET COUNT 242 10^3/UL (140-415); RED BLOOD COUNT 4.19 10^6/ul (4.20-5.40); RED CELL DISTRIBUTION WIDTH 21.1 % (11.5-14.5); WHITE BLOOD COUNT 11.4 10^3/ul (4.8-10.8)
[2016-11-14 08:30] VITALS: BP 94/60; PULSE 68; RESP 18
[2016-11-14] MEDS: SENNA/DOCUSATE NA (8.6MG/50MG) TAB PO SCH ×2 (08:56→20:58)
--- NOTE | 2016-11-14 16:07 | DS ---
Date/Time of Note Date/Time of Note home next day DATE: 11/14/16 TIME: 16:05 Obstetrical Discharge Record Final Diagnosis Final Diagnosis: Term delivered Other Final Diagnosis S/P C/S Section Section: Repeat Condition on Discharge Physical Assessment Last Vitals: see nurses notes Voiding: Yes Bowel Movement: Yes Breast: Soft, non-tender, Filling Fundus: Firm Abdomen and Incision: soft BS + Incision: healing Episiotomy: NA Calf Tenderness: No Patient Condition: Good TOSHIA BRENNAN MD Nov 14, 2016 16:07
--- NOTE | 2016-11-14 16:09 | DS ---
Date/Time of Note Date/Time of Note home next day DATE: 11/14/16 TIME: 16:08 Discharge Summary Admission/Discharge Info Admit Date/Time Nov 12, 2016 at 19:30 Discharge Date/Time 03/17/2017 Final Diagnosis S/P repeat C/S Patient Condition: Good Procedures repeat C/S Hx of Present Illness 31 y/o female had repeat C/S Hospital Course Uncomplicated Home Meds Reported Medications Nifedipine* (Procardia*) 20 Mg Cap, 20 MG PO Q6, CAP 09/27/16 Vit W-Ca,Fe,FA(<1 mg) ( Vitamins) 1 Each Tablet, 1 EACH PO DAILY, TAB 09/03/16 Follow-up Plan 2-3 days in clinic for staple removal Pending Labs Laboratory Tests Test 11/14/16 07:20 White Blood Count 11.410^3/ul (4.8-10.8) Red Blood Count 4.1910^6/ul (4.20-5.40) Hemoglobin 9.0g/dl (12.0-16.0) Hematocrit 31.9% (37.0-47.0) Mean Corpuscular Volume 76.1fl (82.0-101.0) Mean Corpuscular Hemoglobin 21.5pg (29.0-33.0) Mean Corpuscular Hemoglobin Concent 28.2g/dl (32.0-37.0) Red Cell Distribution Width 21.1% (11.5-14.5) Platelet Count 12198^3/UL (140-415) Mean Platelet Volume 9.7fl (7.4-10.4) Neutrophils % 75.4% (39.0-77.0) Lymphocytes % 13.1% (15.0-51.0) Monocytes % 7.7% (0.0-11.0) Eosinophils % 2.3% (0.0-7.0) Basophils % 0.5% (0.0-2.0) Nucleated Red Blood Cells % 0.0/100WBC (0.0-0.0) Neutrophils # 8.610^3/ul (1.6-7.5) Lymphocytes # 1.510^3/ul (0.8-2.9) Monocytes # 0.910^3/ul (0.3-0.9) Eosinophils # 0.310^3/ul (0.0-0.5) Basophils # 0.110^3/ul (0.0-0.1) Nucleated Red Blood Cells # 0.010^3/ul (0.0-0.0) TOSHIA BRENNAN MD Nov 14, 2016 16:09
--- NOTE | 2016-11-14 16:11 | PD.PPDC ---
[employer] Discharge Instruction Provider Information Physician Information 31 y/o female had repeat C/S Diagnosis Final Diagnosis: S/P repeat C/S Condition Patient Condition: Good Diet Diet: Resume Regular Diet Activity/Restrictions Activity: May Shower Restrictions: No Exercising No Lifting Nothing in the Vagina Wound/Drain Care Instructions Wound/Drain Care Instructions: Keep clean and dry Follow-up Follow-up with Physician: 2, 3, Day/Days (in clinic for staple removal ) Return to clinic for [employer] Instructions: Fever greater than 101 Chills OB Instructions: Breast Tenderness Depression Surgical Instructions: Incisional Drainage Incisional Redness TOSHIA BRENNAN MD Nov 14, 2016 16:11
[2016-11-14] MEDS ORDERED: Oxycodone/Acetamin (5/325) PO (16:12)
[2016-11-14] MEDS ORDERED: IBUP800T25 PO (16:12)
[2016-11-14 16:45] VITALS: BP 105/70; PULSE 70; RESP 16
[2016-11-15] MEDS: OXYCODONE/ACETAMINOPHEN (5/325) TAB PO PRN ×3 (00:54→17:14)
[2016-11-15] MEDS: CLINDAMYCIN 300 MG CAP PO SCH ×3 (00:58→13:46)
[2016-11-15 04:00] VITALS: BP 107/68; PULSE 72; RESP 19
[2016-11-15] MEDS: IBUPROFEN 800 MG TAB PO SCH ×2 (05:34→13:46)
[2016-11-15 08:40] VITALS: BP 85/61; PULSE 67; RESP 18
[2016-11-15] MEDS ORDERED: DIPHTH/TET/ACEL PERTUSS (ADULT) 0.5 ML VIAL IM* ONE (09:00)
[2016-11-15] MEDS ORDERED: MEASLES,MUMPS,RUBELLA VACCINE INJ SC* ONE (09:00)
[2016-11-15] MEDS: SENNA/DOCUSATE NA (8.6MG/50MG) TAB PO SCH (10:44)
== END 2016-11-15 18:17 | disposition home or self-care (01) | DRG 766 ==
LOC: OBT 17:10 → L-D 17:12 → OBT 19:30 → L-D 21:22 → PP1 11-13 00:30
PROVIDERS: ADMIT Obstetrics & Gynecology; ATTEND Obstetrics & Gynecology
PROC: 10D00Z1 Extraction of Products of Conception, Low, Open Approach (ICD-10-PCS; principal; 2016-11-12 20:30)
DX: O34.211 Maternal care for low transverse scar from previous cesarean delivery (principal); Z37.0 Single live birth; Z3A.38 38 weeks gestation of pregnancy
CPT/HCPCS: 36415; 85025; 85610; 85730; 86592; 86850; 86900; 86901; 87340; 90715; 94760; 96360; 99464; G0463; J0690; J1885; J2270; J2274; J2370; J2405; J2590; J7120